=== PATIENT | male | born 1965 | race Caucasian/White ===

== ENCOUNTER 2019-10-19 20:47 | Emergency (ER) | payer OTHER, SELFPAY ==
[2019-10-19 21:07] VITALS: BP 146/73; PULSE 75; RESP 14; TEMP 36.6; O2SAT 100; BMI 27.7
--- NOTE | 2019-10-19 21:12 | CT_ITS ---
PROCEDURE: CT ABDOMEN PELVIS WO CON CLINICAL INDICATION: kidney stone Left flank the COMPARISON: ABDPELW/O CT ABD PELVIS W/O CONTRAST from 10/13/2016 TECHNIQUE: Axial images obtained with sagittal and coronal reformats. All CT scans at the facility use one or more dose reduction, viz: automated exposure control, ma/kV adjustment per patient size (including targeted exams where dose is matched to indication, i.e. head), or iterative reconstruction technique. FINDINGS: LOWER THORAX: No acute finding ABDOMEN & PELVIS: The liver, gallbladder, spleen, adrenal glands, and pancreas have an unremarkable appearance. There is moderate left hydronephrosis and hydroureter secondary to a 7 mm stone in the distal 1/3 of the left ureter approximately 5 cm proximal to the ureterovesical junction. There is a complex left renal cyst anteriorly which measures 4 by 2.8 cm. Minimal calcification is noted along the cyst wall posteriorly. Previously this cyst measured 5.84.3 cm. There is mild stranding of the left perinephric renal fat. Benign-appearing right renal cyst is present at 9 cm along the upper pole of the right kidney. Prostate calcifications are present. No intestinal obstruction or free air. No evidence of appendicitis. Degenerative changes are present in the lumbar spine at L2-L3 with degenerative disc disease. There is a small fat containing umbilical hernia IMPRESSION: 1. 7 mm obstructing stone in the distal 1/3 of the left ureter 5 cm proximal to the ureterovesical junction with moderate left hydroureteronephrosis. There is stranding of the left perinephric renal fat. 2. Bilateral renal cysts Dictated by: Glenn Stern MD 10/20/2019 09:49 Electronically signed by Glenn Stern MD in [place] 10/20/2019 09:49
--- NOTE | 2019-10-19 21:18 | [facility].EDUROGM ---
ED Disposition Clinical Impression: Renal colic on left side Disposition: Home, Self-Care Condition on Discharge: Good Instructions: DI for Kidney Stones Additional Instructions: fluids and call urology for follow up Prescriptions: Tamsulosin HCl [Flomax 0.4mg capsule] 0.4 mg PO HS #10 cap Prescription Printed Ketorolac Tromethamine [Toradol 10mg tablet] 10 mg PO Q6H 5 Days #12 tab Prescription Printed Referrals: Provider,Referral, [Primary Care Provider] - - Critical Care Critical Care Time: No Attestation: On 10/19/19, the high probability of a clinically significant, sudden or life threatening deterioration of the following system(s) required my full and direct attention, intervention and personal management. The time I documented below is in addition to time spent performing reported procedures but includes the following listed in this critical care notation. Medical Decision Making - Medical Records Medical records reviewed: Yes: I reviewed the patient's medical records. - Igor Inquiry Pt receiving controlled substance: No Vital Signs: 10/19/19 21:07 10/19/19 21:34 Temperature 97.8 F Temperature Source Oral Pulse Rate [Right Brachial] 75 65 Respiratory Rate 14 17 Blood Pressure [Right Arm] 146/73 H 123/71 Blood Pressure Mean [Right Arm] 97 88 Blood Pressure Source [Right Arm] Automatic Cuff Blood Pressure Position [Right Arm] Sitting 02 Sat by Pulse Oximetry 100 98 Oxygen Delivery Method Room Air Room Air - Lab Data Lab results reviewed: Yes: I reviewed the patient's lab results. Lab Results 10/19/19 21:05: WBC 11.5 H, RBC 5.25, Hgb 16.1, Hct 46.0, MCV 87.7, MCH 30.6, MCHC 34.9, RDW 13.2, Plt Count 226, MPV 7.2 L, Neut % (Auto) 75.9, Lymph % (Auto) 17.4, Ector % (Auto) 5.8, Eos % (Auto) 0.4, Baso % (Auto) 0.6, Neut # (Auto) 8.7 H, Lymph # (Auto) 2.0, Ector # (Auto) 0.7, Eos # (Auto) 0.0, Baso # (Auto) 0.1 10/19/19 21:05: Sodium 136, Potassium 3.9, Chloride 103, Carbon Dioxide 24, Anion Gap 12.9, BUN 21 H, Creatinine 1.20, Estimated Creat Clear 94, Estimated GFR 63, Est GFR ( Amer) 76, Glucose 131 H, Calcium 9.9, Total Bilirubin 0.7, AST 30, ALT 25, Alkaline Phosphatase 109, Total Protein 8.3 H, Albumin 4.9, Globulin 3.4 H, Albumin/Globulin Ratio 1.4, Amylase 42, Lipase 25 10/19/19 21:29: Urine Color Yellow, Urine Appearance Clear, Urine pH 6.0, Ur Specific [place] >= 1.030, Urine Protein Trace, Urine Glucose (UA) Negative, Urine Ketones 2+, Urine Blood 3+, Urine Nitrate Negative, Urine Bilirubin Negative, Urine Urobilinogen 0.2, Ur Leukocyte Esterase Negative, Urine RBC 10-20, Urine WBC Occasional, Ur Squamous Epith Cells 3-5, Urine Bacteria Trace Result diagrams: 10/19/19 21:05 10/19/19 21:05 Orders (Tests/Meds): ED MEDICATIONS Generic Name Dose Route Start Last Admin Trade Name Freq PRN Reason Stop Dose Admin Sodium Chloride 1,000 mls @ 999 mls/hr 10/19/19 21:15 10/19/19 21:24 Sod Chlor 0.9% 1000ml Bag IV 10/19/19 22:15 999 mls/hr .Q1H1M CAROLINE Administration Discontinued Medications Generic Name Dose Route Start Last Admin Trade Name Freq PRN Reason Stop Dose Admin Ketorolac Tromethamine 30 mg 10/19/19 21:14 10/19/19 21:24 Toradol 30mg/Ml Vial IV 10/19/19 21:15 30 mg ONCE ONE Administration Ondansetron HCl 4 mg 10/19/19 21:14 10/19/19 21:24 Zofran 4mg/2ml Vial IV 10/19/19 21:15 4 mg ONCE ONE Administration ORDERS Category Date Time Status CT abdomen pelvis wo con Stat Cat Scan 10/19/19 21:12 Ordered - CT Data CT Scan: Abdomen, Pelvis Time Received: 22:[address] Reviewed: Yes: I have viewed the radiologist's interpretation Preliminary Findings: Abnormal (7 mm stone lt distal) - Reevaluation(s) Time: 22:27 Reevaluation #1: better Male Urogenital HPI - General Chief complaint: Abdominal Pain Stated complaint: Possible kidney stone Time Seen by Provider: 10/19/19 21:10 Mode of Arrival: Lissette
[2019-10-19 21:20] LABS: Basophils # 0.1 K/mm3 (0-0.2); Basophils % 0.6 % (0.1-2.0); Eosinophils % 0.4 % (0.1-12.0); Hemoglobin 16.1 g/dL (14.1-18.0); Lymphocytes % 17.4 % (10-50); Mean Corpuscular HGB Conc 34.9 g/dL (31.8-35.4); Mean Corpuscular Hemoglobin 30.6 pg (27.0-31.2); Mean Corpuscular Volume 87.7 fl (80-94); Mean Platelet Volume 7.2 fl (7.4-10.4); Monocytes # 0.7 K/mm3 (0.1-1.0); Monocytes % 5.8 % (1.7-9.3); Neutrophils # 8.7 K/mm3 (1.8-7.8); Neutrophils % 75.9 % (37.0-80.0); Platelet Count 226 K/mm3 (142-424); Red Blood Count 5.25 M/mm3 (4.60-6.20); Red Cell Distribution Width 13.2 % (11.5-17.5); White Blood Count 11.5 K/mm3 (4.8-10.8)
[2019-10-19 21:22] LABS: Alanine Aminotransferase 25 U/L (12-78); Albumin Level 4.9 g/dl (3.5-5.0); Albumin/Globulin Ratio 1.4 (1.1-1.8); Alkaline Phosphatase 109 U/L (38-126); Amylase 42 U/L (30-110); Aspartate Amino Transferase 30 U/L (17-59); Bilirubin,Total 0.7 mg/dl (0.2-1.3); Blood Urea Nitrogen 21 mg/dl (9-20); Calcium 9.9 mg/dl (8.4-10.2); Carbon Dioxide 24 mmol/L (22.0-30.0); Creatinine Clearance Estimated 94 mL/min (50-200); Estimated Glomerular Filt Rate 63 ml/min (>60); GFR (African American) 76 ML/MIN (>60); Globulin 3.4 g/dL (1.3-3.2); Glucose 131 mg/dl (74-100); Lipase 25 U/L (23-300); Potassium 3.9 mmoL/L (3.5-5.1); Sodium 136 mmol/L (136-145); Total Protein,Serum 8.3 g/dl (6.3-8.2)
[2019-10-19 21:26] LABS: Microscopic, Urine URINE MICROSCOPIC (MICROSCOPIC)
[2019-10-19 21:34] VITALS: BP 123/71; PULSE 65; RESP 17; O2SAT 98
[2019-10-19 21:40] LABS: Appearance,Urine CLEAR (Clear); Bilirubin,Urine Negative (Negative); Blood, Urine 3+ (Negative); Color,Urine YELLOW (Yellow); Glucose,Urine (UA) Negative (Negative); Ketones,Urine 2+ (Negative); Leukocyte Esterase,Urine Negative (Negative); Nitrate,Urine Negative (Negative); Protein,Urine TRACE (Negative); Specific Gravity, Urine >= 1.030 (1.005-1.030); Urobilinogen,Urine 0.2 EU/dl (0.2)
[2019-10-19 21:46] LABS: Anion Gap 12.9 mEq/L (5-15); Chloride 103 mmol/L (98-107)
[2019-10-19 21:53] LABS: Bacteria,Urine Trace /lpf; WBC,Urine Occasional #/hpf (0-3)
[2019-10-19 22:28] VITALS: BP 137/80; PULSE 76; RESP 16; O2SAT 97
[2019-10-19 22:37] VITALS: BP 138/79; PULSE 74; RESP 16; TEMP 36.7; O2SAT 97
== END 2019-10-19 22:40 | disposition home or self-care (01) ==
PROVIDERS: Emergency Provider Emergency Medicine
DX: N23 Unspecified renal colic (principal)
CPT/HCPCS: 74176; 80053; 81001; 82150; 83690; 85025; 96365; 96375; 99284; J2405

== ENCOUNTER → 2022-01-01 13:52 | Outpatient (CLI) | payer OTHER, SELFPAY ==
--- NOTE | 2022-01-01 13:57 | XR_ITS ---
FINAL REPORT CLINICAL HISTORY: hx of kidney stone left side , groin pain FINDINGS: SINGLE VIEW ABDOMEN A single view of the abdomen was obtained. There is a nonobstructive bowel gas pattern. There are no abnormally dilated loops of small bowel. There is a 2 mm calcification in the left pelvis. There are presumed prostate calcifications. IMPRESSION: 2 mm calcification in the left pelvis may represent a distal left ureteral stone or phlebolith. Reviewed, Interpreted and Dictated by Holden Holley III, MD Transcribed by Saul Meng Authenticated and . [facility]
== END ==
PROVIDERS: PCP Internal Medicine Adolescent Medicine; Visit Provider Urology
DX: N20.0 Calculus of kidney (principal)
CPT/HCPCS: 74018

== ENCOUNTER → 2022-01-01 14:34 | Outpatient (CLI) | payer OTHER, SELFPAY ==
[2022-01-01 18:45] LABS: Prostate Specific Ag Screen 1.7 ng/ml (0.0-4.0)
== END ==
PROVIDERS: PCP Internal Medicine Adolescent Medicine; Visit Provider Urology
DX: Z12.5 Encounter for screening for malignant neoplasm of prostate (principal)
CPT/HCPCS: 36415; G0103

== ENCOUNTER → 2022-02-12 09:48 | Outpatient (CLI) | payer OTHER, SELFPAY | PROVIDERS: PCP Internal Medicine Adolescent Medicine; Visit Provider Urology | DX: Z01.812 Encounter for preprocedural laboratory examination (principal); Z20.822 Contact with and (suspected) exposure to COVID-19; R39.198 Other difficulties with micturition | CPT/HCPCS: C9803; U0003; U0005 ==

== ENCOUNTER 2022-02-14 09:56 | Day surgery (SDC) | payer OTHER, SELFPAY ==
[2022-02-12 10:48] VITALS: BMI 27.0
[2022-02-14 10:22] VITALS: BP 137/81; PULSE 71; RESP 18; TEMP 36.7; O2SAT 99
--- NOTE | 2022-02-14 10:33 | P.PN_ITS ---
[facility] Medical History Fracture of left tibia and fibula History of COVID-19 Kidney stone Mitral valve prolapse Pneumonia Surgical History No significant past surgical history Family History Father Prostate cancer Family history of stroke Social History Smoking Status: Never smoker alcohol intake: never substance use type: denies use current occupational status: employed and other Travel in the last 8 weeks: None household members: spouse and family housing: house [facility] Anesthesia Checklist Patient Identification Patient Identification: Arm Band and Verbal (Name & ) Structural Data Admitted From: Home Planned Operative Procedure/s: Cystoscopy with stone extraction Consent for Planned Operative Procedure(s) Verified: Yes NPO Status Verified Time NPO: 00:00 Additional verifications Anesthesia Reactions: No Hx Blood Transfusions: No Blood Transfusion Reaction: No Airway Assessment C-Spine Mobility Assessed: Yes TMJ Mobility Assessed: Yes Dentition: Good Dentition Neurological Assessment Level of Consciousness: Awake Hx Seizures: No Numbness or tingling in extremities: No Anesthesia Plan Anesthesia Risk discussed: Yes Anesthesia Plan: Verified ASA Class: I Anesthesia Type: MAC
[2022-02-14 12:15] VITALS: BP 97/66; PULSE 71; RESP 14; TEMP 36.1; O2SAT 92
--- NOTE | 2022-02-14 12:27 | EXP.OP.NOTE ---
Date of procedure: 02/14/22 Pre-op Diagnosis:: distal urethral stone Post-op Diagnosis:: same Procedure performed:: cystoscopy with stone extraction Surgeon:: Rai Jansen MD SHIRT FOLDING MACHINE OPERATOR:: Dell Celeste Anesthesia: MAC Estimated blood loss (mL): 0 Clinical Note:: Patient is a 57-year-old white male with ureteral obstruction and palpable abnormality in the distal urethra consistent with a distal urethral stone. Operative findings:: 8 mm stone noted in the distal urethra. Operative note:: Patient taken to the operating room after informed consent was obtained. He was placed on the operating table and monitored anesthesia care administered. Preoperative antibiotics were administered and sequential compression devices placed. He was then placed into the dorsal lithotomy position prepped draped in standard surgical fashion. The 22 [place] cystoscope attempted to be passed into the distal urethra but the stone was obstructing it. Weston dilators were used to push the stone more proximally and to dilate the distal urethra. After dilation to 28 [place] the 22 [place] the scope was replaced and the stone was grasped with rigid graspers and removed without difficulty. The grasper was then removed and cystoscopy was performed showing no other stones in the bladder. Bladder was otherwise normal. The prostate showed some bilobar hyperplasia. The ureteral orifices in their normal anatomic position with clear efflux of urine. Little bit of bleeding was noted from the prostatic urethra and the [place] electrode was used to fulgurate bleeding. The bladder then emptied and the scope removed. The patient tolerated procedure well no complications. Condition: stable Disposition: same day Specimens:: Stone Complications:: None
[2022-02-14 12:30] VITALS: BP 100/62; PULSE 66; RESP 14; O2SAT 93
[2022-02-14 12:40] VITALS: BP 91/62; PULSE 61; RESP 16; O2SAT 96
[2022-02-14 12:55] VITALS: BP 107/69; PULSE 61; RESP 16; O2SAT 99
[2022-02-23 19:13] LABS: Ammonium acid urate 0; Ca oxalate dihydrate 30; Calcium bilirubinate 0; Calcium carbonate 0; Calcium phosphate 5; Cholesterol 0; Magnesium ammon phos 0; Sodium acid urate 0; Uric acid dihydrate 0
== END 2022-02-14 12:55 | disposition home or self-care (01) ==
PROVIDERS: PCP Internal Medicine Adolescent Medicine; Visit Provider Urology
PROC: 0TCB8ZZ Extirpation of Matter from Bladder, Via Natural or Artificial Opening Endoscopic (ICD-10-PCS; CPT 52315; principal; 2022-02-14 11:30)
DX: N21.1 Calculus in urethra (principal)
CPT/HCPCS: 52315; 82370; 96374